=== PATIENT | male | born 1970 ===

== ENCOUNTER 2020-11-04 09:43 | Outpatient (CLI) | payer MEDICARE, SELFPAY ==
--- NOTE | ~2020-11-04 | MR_ITS ---
EXAMINATION: MR cervical spine wo con EXAM DATE: 11/04/2020 10:36 INDICATION: Cervical radiculopathy. Bilateral arm, neck pain. TECHNIQUE: Multi-sequential, multiplanar MR images of the cervical spine were obtained without contra st. Axial T2, axial T2 MERGE sequence. Sagittal T1, T2, T2 fat saturation images also obtained. Th ere is no prior study for comparison. FINDINGS: There is moderate to severe disc disease at C3-4, where the spinal canal is narrowed to 5 mm centrally and even less paracentrally, with the cord being compressed. Slightly increased T2 cord signal at this level, could be myelomalacia or possibly mild cord edema. Uncertain whether or not pat ient would benefit from steroid administration. The vertebral body and disc heights are otherwise well maintained. The vertebral bodies are aligned i n the AP dimension. Cervicomedullary junction is normal in appearance. There are no suspicious marrow signal abnormalities. Paraspinal soft tissue is unremarkable. Level by level evaluation: C2-C3: Disc does not extend beyond the endplate margin. Uncovertebral joint arthropathy: Mild bilateral. Facet joint arthropathy: Mild to moderate left, mild right. Neural foraminal stenosis: Mild left. Central canal stenosis: No stenosis. C3-C4: There is a moderate diffuse disc bulge. Uncovertebral joint arthropathy: Severe right, moderate to severe left. Facet joint arthropathy: Moderate bilateral. Neural foraminal stenosis: Severe right, moderate to severe left. Central canal stenosis: Moderate. Central canal measures 5 mm in mid sagittal AP diameter . C4-C5: There is a minimal diffuse disc bulge. Uncovertebral joint arthropathy: Mild to moderate bilateral. Facet joint arthropathy: Mild to moderate bilateral. Neural foraminal stenosis: Moderate left, mild to moderate right. Central canal stenosis: Mild. C5-C6: Disc does not extend beyond the endplate margin. Uncovertebral joint arthropathy: Mild to moderate bilateral. Facet joint arthropathy: Mild to moderate bilateral. Neural foraminal stenosis: Mild left. Central canal stenosis: No stenosis. C6-C7: Disc does not extend beyond the endplate margin. Uncovertebral joint arthropathy: Mild bilateral. Facet joint arthropathy: Mild bilateral. Neural foraminal stenosis: No stenosis. Central canal stenosis: No stenosis. C7-T1: Disc does not extend beyond the endplate margin. Uncovertebral joint arthropathy: Mild bilateral. Facet joint arthropathy: Mild to moderate right, mild left. Neural foraminal stenosis: No stenosis. Central canal stenosis: No stenosis. IMPRESSION: 1. C3-4 cord compression, likely chronic but can't exclude some amount of cord edema. Uncertain whet her patient would benefit from steroid treatment. Consider neurosurgical evaluation. 2. Otherwise relatively mild spondylosis. I phoned clinician Lindsey Moreno, [facility] on 11/04/2020 13:31 CDT. Office is presently closed. Reviewed, dictated and finalized at location B. IMPRESSION: 1. C3-4 cord compression, likely chronic but can't exclude some amount of cord edema. Uncertain whether patient would benefit from steroid treatment. Conside r neurosurgical evaluation. 2. Otherwise relatively mild spondylosis. I phoned clinician Lindsey Moreno, [employer] on 11/04/2020 13:31 CDT. Office is pres ently closed.
== END 2020-11-04 09:44 ==
PROVIDERS: Visit Provider Nurse Practitioner Family
DX: M47.22 Other spondylosis with radiculopathy, cervical region (principal)
CPT/HCPCS: 72141